=== PATIENT | male | born 1960 | race Caucasian/White ===

== ENCOUNTER 2022-01-10 00:52 | Emergency (ER) | payer SELFPAY ==
[~2022-01-10] VITALS: Ht 175.3 cm; Wt 97.1 kg
--- NOTE | 2022-01-10 01:19 | PHYS DOC ---
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 States has been in long term for the last 5 days, and detox on 100 mg of Librium a day. States that he is also had a fall while in residential. Staff not sure if he had a seizure or not as he did have some strange movements. States that last known normal/well was just before going to long term and had a significantly elevated alcohol level. Review of Systems Review of Systems Review of systems otherwise unremarkable except noted in HPI Physical Exam Physical Exam Constitutional: Well developed, well nourished, appears oversedated as patient responds to pain but does not open his eyes. HENT: Normocephalic, atraumatic, bilateral external ears normal, bilateral tympanic membranes normal, oropharynx dry, Eyes: Appears to have bilateral yellow discharge of the eyes with pinpoint pupils Neck: Normal range of motion, supple, no stridor. [] Cardiovascular:Heart rate regular rhythm, no murmur [] Lungs & Thorax: Bilateral breath sounds clear to auscultation [] Abdomen: Bowel sounds normal, soft, no tenderness, no masses, no pulsatile masses. [] Skin: Warm, dry, no erythema, no rash. [] Back: No tenderness, no CVA tenderness. [] Extremities: No tenderness, no cyanosis, no clubbing, ROM intact, no edema. [] Neurologic: Initial GCS of 7, ED V3, M4, blood sugar normal, after fluconazole, GCS of 10 with confused for vision intermittent eye-opening with stimulus, and moved all extremities with stimulus Psychologic: Affect normal, judgement normal, mood normal. [] EKG EKG [] Radiology/Procedures Radiology/Procedures [] Heart Score C/O Chest Pain: No Risk Factors: Risk Factors: DM, Current or recent (<one month) smoker, HTN, HLP, family history of CAD, obesity. Risk Scores: Risk Factors: DM, Current or recent (<one month) smoker, HTN, HLP, family history of CAD, obesity. Course & Med Decision Making Course & Med Decision Making Patient is a 61-year-old male coming from residential detox escorted by [facility]'s department, and has been on Librium 100 mg a day for the last 5 days for alcohol withdrawal who had a fall and presents obtunded. Initial vital signs notable for tachycardia, normal blood sugar, borderline bradypnea, hypoxia on room air placed on 2 L nasal cannula. Placed on the monitor with IV access established and IV fluid begun. Trial of Romazicon succ essful with GCS improving shortly after dosing then return to original GCS of 7. CT of the head with an acute subdural hematoma along the right parietal convexity measuring 4 mm with additional small amount of blood extending along the right tentorium and falx, probable right-sided aspiration pneumonia and pancreatitis versus pancreatic contusion. Laboratory analysis notable for leukopenia, probable anion gap metabolic acidemia with some compensation, NANY Given patient's intracranial hemorrhage, GCS, obtundation, not sure if his obtundation is from sepsis, the 100 mg of Librium daily, the head bleed or combination of, and concern for patient decompensating and losing airway. Intubated to provide protection and stability and transport for neurosurgical and neurologic evaluation and treatment. Etomidate and rocuronium used for induction and paralyzation. A size 8 endotracheal tube was placed successfully on first pass. Low-dose propofol used post intubation for maintenance. Phenylephrine used initially for rescue after intubation to maintain MAP. Bag of norepinephrine made for blood pressure support, blood cultures obtained. Started on antibiotics. Fluid resuscitation also begun. Boluses of phenylephrine at bedside to maintain a map of about 75-85, in hopes of maintaining cerebral perfusion pressure but not so high as to worsen the ICH. discussed patient with neurology, Dr. Henley and neurosurgical [employer] of Dr. Coreas, as well as [facility] hospitalist Dr. Prescott about admission to ICU. Accepted to [facility] for continued evaluation and treatment of intracranial hemorrhage, alcohol withdrawal and oversedation on Librium, aspiration pneumonia, pancreatitis versus pancreatic contusion and probable sepsis/bacteremia. Critical care time 1 hour. [] Dragon Disclaimer Dragon Disclaimer This electronic medical record was generated, in whole or in part, using a voice recognition dictation system. Departure Departure: Impression: Primary Impression: Alcohol withdrawal Additional Impressions: Benzodiazepine intoxication Subdural hematoma Aspiration pneumonia Pancreatitis Pancreatic contusion Sepsis Disposition: 02 SHORT TERM HOSPITAL Admitting Physician: Guera Prescott Condition: GUARDED Referrals: PCP,NO (PCP) UMER BAUM MD Problem Qualifiers MEAGHAN TAYLOR MD Jan 10, 2022 01:19
[2022-01-10] MEDS ORDERED: FLUMAZENIL 0.5 MG/5 ML VIAL. IV ONE (01:31)
[2022-01-10] MEDS ORDERED: NALOXONE 0.4 MG/ML VIAL. ONE (01:31)
[2022-01-10] MEDS ORDERED: IV RINGERS SOLUTION,LACTATED 1,000 ML IV ONE (01:45)
--- NOTE | 2022-01-10 02:22 | RAD ---
CT HEAD AND C-SPINE WO Date: 01/10/2022 1:43 AM Clinical Indication: Fall, AMS, possible seizure, drowsiness, short of air, pain Comparison: None. Technique: 5 mm axial tomographic images were obtained of the head without contrast. These were view ed on brain and bone windows. Noncontrast CT of the cervical spine was performed. Sagittal and lyle l reformats were performed and evaluated. One or more of the following dose reduction techniques were utilized: Automated exposure control (AEC), Adjustment of mA and/or kV according to patient size, Us e of iterative reconstruction technique such as ASiR, CT scan done according to ALARA and image gentl y/image wisely HEAD FINDINGS: Small amount of acute subdural blood products along the right parietal convexity, falx, and tentorium measuring up to 4 mm in thickness. Mild generalized cerebral and cerebellar volume loss. Mild nonspecific periventricular hypoattenuatio n, most commonly seen with chronic small vessel ischemic disease. The ventricles are normal in size, shape, and morphology. The earl-white matter junction is normal. T he basilar cisterns are patent. The visualized paranasal sinuses are normal. The visualized portions of the orbits and globes are no rmal. The mastoid air cells are clear. No aggressive osseous lesion or fracture. CERVICAL SPINE FINDINGS: The cervical spine is normally aligned. No acute fracture. No aggressive lytic or blastic osseous les ions. Severe multilevel degenerative disc space height loss. Multilevel mild spinal canal stenosis secondar y to disc protrusions and marginal osteophytes. Multilevel mild and moderate neuroforaminal narrowing secondary to uncovertebral arthrosis. Multilevel mild facet arthrosis. The thyroid gland is normal. No cervical lymphadenopathy. Bilateral carotid atherosclerosis. The visu alized aerodigestive tract is normal. The visualized portions of the lungs are clear. IMPRESSION: 1. Acute subdural hematoma along the right parietal convexity measuring 4 mm thickness, with addition al small amount of blood extending along the right tentorium and falx. 2. No acute cervical spine fracture. FOR INTERNAL CODING PURPOSES Critical result: Findings discussed with MEAGHAN TAYLOR MD at 01/10/2022 2:17 AM. RESULT CODE: (C) Electronically signed by: Jian Bustillos MD (01/10/2022 2:19 AM) [facility]
[2022-01-10] MEDS ORDERED: PROPOFOL 10,000 MCG/ML (20ML) VIAL IV ONE (02:27)
[2022-01-10] MEDS ORDERED: ETOMIDATE 40 MG/20 ML VIAL. ONE (02:30)
[2022-01-10] MEDS ORDERED: ROCURONIUM 50 MG/5 ML VIAL. ONE (02:30)
[2022-01-10] MEDS ORDERED: PHENYLEPHRINE 10 MG/ML VIAL. IV ONE (02:30)
--- NOTE | 2022-01-10 02:32 | RAD ---
CT CHEST_ABDOMEN_ AND PELVIS WITHOUT CONTRAST INDICATION: Fall, AMS, possible seizure, drowsiness, short of air / Spl. Instructions: / History: COMPARISON: None. TECHNIQUE: Multiple contiguous axial images were obtained throughout the chest, abdomen, and pelvis without the use of IV contrast. Axial images were reformatted into coronal and sagittal planes. One or more of th e following dose reduction techniques were utilized: Automated exposure control (AEC), Adjustment of mA and/or kV according to patient size, Use of iterative reconstruction technique such as ASiR, CT sc an done according to ALARA and image gently/image wisely. FINDINGS: Chest Findings: The thyroid is symmetric. There is no axillary, mediastinal, or hilar adenopathy, although evaluatio n of the harish is limited without IV contrast. The thoracic aorta diameter is normal. The cardiac size is normal. There is no pericardial effusion. The central airways are patent. Groundglass and nodular opacities in the right lower lobe, and to a l ede extent upper and middle lobes. Small right pleural effusion. Abdomen findings: Evaluation of solid abdominal viscera is limited without the use of IV contrast. However, the liver, spleen, and adrenal glands are unremarkable. Inflammatory stranding around the pancreas. Cholelithia sis The kidneys are unremarkable. There is no significant mesenteric or retroperitoneal adenopathy i dentified, though evaluation is limited without intravenous contrast. There is no evidence of free i ntraperitoneal fluid or pneumoperitoneum. Visualized portions of the bowel are grossly unremarkable. Pelvis findings: Well-distended urinary bladder. There are a couple of bladder diverticula. Small amount of hypoattenu ation dependently within the bladder may represent calcification. There is no significant pelvic asc ites. No significant iliac or inguinal adenopathy is identified. No acute osseous abnormality. Chronic right rib fractures IMPRESSION: 1. Groundglass and nodular opacities in the right lower lobe and to lesser extent right upper and mid dle lobes, likely infection and/or aspiration. 2. Inflammatory stranding around the pancreas could represent pancreatitis or contusion. 3. Small right pleural effusion 4. Well distended urinary bladder. Correlate for voluntary versus involuntary urinary retention. Electronically signed by: Jian Bustillos MD (01/10/2022 2:30 AM) [facility]
[2022-01-10] MEDS ORDERED: PROPOFOL 100 ML IV ONE (02:33)
[2022-01-10 02:35] LABS: CALCIUM 8.7 mg/dL (8.5-10.1); CREATININE 2.7 mg/dL (0.7-1.3); GFR 24.1; POTASSIUM 3.6 mmol/L (3.5-5.1)
[2022-01-10 02:42] LABS: ALBUMIN/GLOBULIN RATIO 1.2 (1.0-1.7); MAGNESIUM 1.9 mg/dL (1.8-2.4); TOTAL PROTEIN 7.4 g/dL (6.4-8.2)
[2022-01-10 02:49] LABS: BASO % 0 % (0-3); EOS % 1 % (0-3); HEMATOCRIT 43.4 % (39.0-53.0); HEMOGLOBIN 14.6 g/dL (13.0-17.5); LYMPH # 0.2 x10^3/uL (1.0-4.8); LYMPH % 6 % (24-48); MEAN CORPUSCULAR HEMOGLOBIN 37 pg (25-35); MEAN CORPUSCULAR HGB CONC 34 g/dL (31-37); MEAN CORPUSCULAR VOLUME 109 fL (79-100); MONO # 1.4 x10^3/uL (0.0-1.1); MONO % 37 % (0-9); NEUT # 2.1 x10^3uL (1.8-7.7); NEUT % 56 % (31-73); PLATELET COUNT 96 x10^3/uL (140-400); RED BLOOD COUNT 3.98 x10^6/uL (4.30-5.70); RED CELL DISTRIBUTION WIDTH 16.3 % (11.5-14.5); WHITE BLOOD COUNT 3.8 x10^3/uL (4.0-11.0)
[2022-01-10 03:23] LABS: % LYMPHS 6 % (24-48); % MONOS 54 % (0-10); % SEGS 40 % (35-66); ANISOCYTOSIS PRESENT; PLT ESTIMATE DECREASED (ADEQUATE); TARGET CELLS FEW
--- NOTE | 2022-01-10 03:30 | RAD ---
XR CHEST 1V INDICATION: Check tube placement COMPARISON STUDY: Same-day CT chest. FINDINGS: Life Support Devices: Endotracheal tube drainage 6 cm above the briana. Enteric tube terminates in th e proximal stomach. Lungs: Normal lung volume. Persistent right mid and lower lung opacities. Pleura: Stable pleural spaces. Heart and Mediastinum: Stable cardiomediastinal silhouette and great vessels. IMPRESSION: 1. Left support devices as above. 2. Persistent right mid and lower lung opacities, better characterized on prior CT chest Electronically signed by: Jian Bustillos MD (01/10/2022 3:27 AM) [facility]
[2022-01-10 03:36] LABS: HYPOCHROMIA SLIGHT; SCHISTOCYTES OCC
[2022-01-10] MEDS ORDERED: NOREPINEPHRINE BITARTRATE 4 MG/4 ML VIAL. IV ONE (04:03)
[2022-01-10 04:12] LABS: INFLUENZA A PATIENT NEGATIVE (NEGATIVE); INFLUENZA B PATIENT NEGATIVE (NEGATIVE)
[2022-01-10] MEDS ORDERED: NOREPINEPHRINE BITARTRATE 8 MG in IV DEXTROSE 5% 250 ML IV PRN (04:15)
[2022-01-10 04:23] LABS: BACTERIA,URINE MANY /HPF (0-FEW); CLARITY,URINE CLOUDY; COLOR,URINE YELLOW; GLUCOSE,URINE NEG (NEG); NITRITE,URINE POS (NEG); RBC,URINE 0 /HPF (0-2); SQUAMOUS EPITHELIAL CELL,UR FEW /LPF
[2022-01-10 04:24] LABS: HYALINE CASTS, URINE FEW /HPF
[2022-01-10 04:36] VITALS: BP 106/78
[2022-01-10 06:12] LABS: BGAS PH 7.46 (7.35-7.46)
--- NOTE | 2022-01-10 19:46 | EKG ---
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
== END 2022-01-10 06:00 | disposition short-term general hospital (02) ==
LOC: ER 00:52
DX: S06.5X0A Traumatic subdural hemorrhage without loss of consciousness, initial encounter (principal); A41.9 Sepsis, unspecified organism; S36.229A Contusion of unspecified part of pancreas, initial encounter; J69.0 Pneumonitis due to inhalation of food and vomit; K85.90 Acute pancreatitis without necrosis or infection, unspecified; Z20.822 Contact with and (suspected) exposure to COVID-19; W18.39XA Other fall on same level, initial encounter; Y93.89 Activity, other specified; Y92.89 Other specified places as the place of occurrence of the external cause; Y99.8 Other external cause status
CPT/HCPCS: 36415; 36600; 70450; 71045; 71250; 72125; 74176; 80053; 81001; 82803; 82947; 83605; 83735; 84484; 85007; 85025; 85610; 85730; 87040; 87086; 87428; 93005; 96361; 96365; 96366; 99291; C9803; J1956; J7120; U0003; 94002; 99285-25